=== PATIENT | female | born 1940 | race Caucasian/White ===

== ENCOUNTER → 2020-08-02 | Outpatient (CLI) | payer MEDICARE ==
[2020-08-02 16:36] VITALS: BP 142/90
--- NOTE | 2020-08-02 17:02 | REP ---
INDICATION: R92.8 ABNORMAL RT BREAST MAMMOGRAM,STEREOTACTIC BX. Micro calcific grouping. COMPARISON: Comparison mammography June 28, 2020.. TECHNIQUE: Single specimen radiograph. FINDINGS: Specimen radiography demonstrates 5 different microcalcifications from the grouping in question. IMPRESSION: Specimen radiography demonstrates microcalcifications from the target grouping. <Electronically signed by Selvin Ponce > 08/02/20 [id number]
--- NOTE | 2020-08-02 17:16 | REP ---
INDICATION: R92.8 ABNORMAL RT BREAST MAMMOGRAM,STEREOTACTIC BX,POST BX. Marker clip placement views. COMPARISON: Comparison right breast mammography June 28, 2020 and June 14, 2020. TECHNIQUE: Craniocaudal and mediolateral views of the right breast are obtained. FINDINGS: A needle biopsy marker clip is noted at the site of the micro calcific target on the craniocaudal view. This is approximately 1 cm but caudal to the target grouping on the mediolateral oblique view. The target grouping contains few were calcifications. This indicates accurate sampling. There is some post biopsy air. No hematoma. IMPRESSION: Marker clip in good position. Decreased number of microcalcifications noted in the right breast. <Electronically signed by Selvin Ponce > 08/02/20 [id number]
--- NOTE | 2020-08-02 19:01 | REP ---
INDICATION: R92.8 ABNORMAL RT BREAST MAMMOGRAM,STEREOTACTIC BX. COMPARISON: None. TECHNIQUE: This procedure is performed by Daisy Tirado [facility], under the direct supervision of Dr. Ponce. The risks and benefits of the procedure were explained to the patient and informed consent was obtained both verbally and written. Directly prior to the start of the procedure, a formal timeout was done in the procedure room. The cranial caudal approach was utilized on the prone table. The right breast microcalcifications were localized using mammographic guidance. The skin was prepped and draped in a sterile fashion. Three ml of buffered lidocaine was used as a local anesthetic. FINDINGS: A 10 gauge mammotome suction assisted biopsy device was inserted and advanced into the breast and 6 core biopsy samples were obtained. A marker clip was placed at the biopsy site. Imaging of the biopsy specimens demonstrate calcifications within the specimens. The patient tolerated the procedure well and there were no immediate complications. After the appropriate amount of monitored convalescence the patient was discharged from the department. IMPRESSION: Right breast stereotactic biopsy with micro clip placement. <Electronically signed by Daisy Tirado > 08/02/20 1602 <Electronically signed by Selvin Ponce > 08/02/20 [id number]
== END ==
LOC: M WHCPRO 14:00
PROVIDERS: ATTEND Family Medicine
DX: D24.1 Benign neoplasm of right breast (principal); N60.11 Diffuse cystic mastopathy of right breast

== ENCOUNTER → 2023-07-31 | Outpatient (REF) | payer MEDICARE | LOC: M SFHCDERM 14:11 | PROVIDERS: ATTEND Dermatology | DX: L82.1 Other seborrheic keratosis (principal) ==

== ENCOUNTER → 2024-04-10 | Outpatient (CLI) | payer MEDICARE ==
[2024-04-14 13:43] LABS: QuantiFERON-TB Gold Plus NEGATIVE (NEGATIVE)
== END ==
LOC: M LAB 09:32
PROVIDERS: ATTEND Nurse Practitioner Family
DX: L40.9 Psoriasis, unspecified (principal)